=== PATIENT | male | born 1945 | race Caucasian/White ===

== ENCOUNTER 2024-08-28 12:48 | Inpatient (IN) | payer MEDICARE, OTHER ==
[~2024-08-28] VITALS: Ht 175.3 cm; Wt 107.7 kg
[2024-08-28] MEDS ORDERED: 0.9% SODIUM CHLORIDE 10 ML SYRINGE IVP PRN (13:00)
[2024-08-28 13:24] LABS: BASOPHILS % (AUTO) 0.2 % (0.0-2.0); EOSINOPHILS % (AUTO) 0.5 % (1.0-6.0); HEMATOCRIT 25.6 % (41-53); LYMPHOCYTES # (AUTO) 0.6 K/uL (1.0-4.8); LYMPHOCYTES % (AUTO) 7.2 % (22.0-44.0); MEAN CORPUSCULAR HEMOGLOBIN 29.1 pg (26.0-34.0); MEAN CORPUSCULAR HGB CONC 31.1 G/dL (31.0-37.0); MEAN CORPUSCULAR VOLUME 94 fL (80-100); MONOCYTES # (AUTO) 0.7 K/uL (0.1-1.0); MONOCYTES % (AUTO) 7.5 % (2.0-9.0); NEUTROPHILS # (AUTO) 7.4 K/uL (1.8-7.7); NEUTROPHILS % (AUTO) 84.6 % (40.0-70.0); PLATELET COUNT (AUTO) 150 K/uL (150-450); RED BLOOD CELL COUNT(AUTO) 2.74 MIL/uL (4.50-5.90); RED CELL DISTRIBUTION WIDTH 18.7 % (11.5-14.5); WHITE BLOOD COUNT (AUTO) 8.8 K/uL (4.5-11.0)
[2024-08-28 13:34] LABS: ANION GAP 4 mmol/L (8-16); CALCIUM, TOTAL 8.2 mg/dL (8.8-10.5); CARBON DIOXIDE 31 mmol/L (22-29); CHLORIDE 103 mmol/L (98-107); CREATININE 4.74 mg/dL (0.60-1.30); GLOMERULAR FILTR. RATE CALC 12 mL/min (>60); GLUCOSE,RANDOM 90 mg/dL (70-110); POTASSIUM 4.8 mmol/L (3.5-5.1); SODIUM SERUM 138 mmol/L (136-145); UREA NITROGEN, BLOOD 36 mg/dL (7-18)
[2024-08-28] MEDS ORDERED: NOREPINEPHRINE 8 MG/0.9 % NACL 250 ML IV ONE (13:35)
[2024-08-28 13:36] LABS: PROTHROMBIN TIME 11.9 SEC (9.4-11.6)
[2024-08-28] MEDS: SODIUM CHLORIDE 0.9% 2,000 ML IV ONE (13:37)
[2024-08-28] MEDS: CALCIUM GLUCONATE 100 MG/ML 10 ML IVP ONE (13:40)
[2024-08-28 13:43] LABS: ALANINE AMINOTRANSFERASE 10 U/L (12-78); ALBUMIN 2.2 g/dL (3.4-5.0); ALKALINE PHOSPHATASE 95 U/L (46-116); ASPARTATE AMINOTRANSFERASE 18 U/L (15-37); BILIRUBIN,TOTAL 0.5 mg/dL (0.1-1.0); LACTIC ACID 0.9 mmol/L (0.4-2.0); TOTAL PROTEIN, SERUM 6.5 g/dL (6.4-8.2); TROPONIN I-HIGH SENSITIVITY 39 ng/L (<76)
[2024-08-28] MEDS ORDERED: NOREPINEPHRINE 8 MG/0.9 % NACL 250 ML IV PRN (13:45)
[2024-08-28 13:52] VITALS: PULSE 85; RESP 22; O2SAT 92
[2024-08-28 13:54] LABS: ALLEN TEST, BLOOD GAS Positive; SITE, BLOOD GAS LFT RADIAL; SOURCE, BLOOD GAS ARTERIAL; TEMPERATURE, FAHRENHEIT, BG 97.8 FAHREN (96.0-98.6)
[2024-08-28 13:55] LABS: ABG A-A DIFF O2 566.4 mmHg (10-20.0); ABG BASE EXCESS -1.6 mmol/L (-2.0-3.0); ABG CARBOXYHEMOGLOBIN 2.1 % (0.5-1.5); ABG HCO3 22.8 mmol/L (21.0-28.0); ABG METHEMOGLOBIN 0.7 % (0.0-1.5); ABG OXYGEN CONTENT 11.2 mL/dL (15.0-23.0); ABG OXYGEN SATURATION 95.4 % (94.0-98.0); ABG OXYHEMOGLOBIN 92.7 % (94.0-98.0); ABG PCO2 61 mmHg (32.0-48.0); ABG PH 7.245 (7.350-7.450); ABG TOTAL HEMOGLOBIN 8.5 G/dL (13.5-17.5); PO2, ARTERIAL BG 87.1 mmHg (83.0-108.0)
[2024-08-28 13:56] LABS: B-TYPE NATRIURETIC PEPTIDE 1880 pg/mL (0-100)
[2024-08-28 13:56] LABS: O2 DEVICE,BLOOD GAS NON REBREATHER (ROOM AIR)
[2024-08-28] MEDS ORDERED: ETOMIDATE 2 MG/ML 10 ML VIAL ONE (14:12)
[2024-08-28] MEDS ORDERED: ROCURONIUM BROMIDE 10 MG/ML 5 ML VIAL ONE (14:12)
[2024-08-28 14:21] VITALS: PULSE 85; RESP 26; O2SAT 98
[2024-08-28] MEDS: ONDANSETRON HCL 4 MG/2 ML VIAL IVP ONE (14:48)
[2024-08-28] MEDS: CefTRIAXone 1 GM/DEXTROSE 50 ML IV ONE (15:07)
[2024-08-28] MEDS: FentaNYL CIT 1000MCG/0.9% NACL 100 ML IV PRN (15:24)
[2024-08-28] MEDS ORDERED: BISACODYL 10 MG RECTAL RECTAL SUPPOSITORY PR PRN (15:30)
[2024-08-28] MEDS ORDERED: DEXTROSE 50%-WATER 25 GM/50 ML SYRINGE IVP PRN (15:30)
[2024-08-28] MEDS ORDERED: ACETAMINOPHEN 325 MG TABLET PO PRN (15:30)
[2024-08-28 15:37] LABS: COVID AG,FIA SOURCE NASAL SWAB
[2024-08-28] MEDS ORDERED: VANCOMYCIN HCL 1 GM/D5% WATER 200 ML IV PRN (16:00)
[2024-08-28 16:11] VITALS: PULSE 54; RESP 26; O2SAT 90
[2024-08-28 16:55] LABS: INFLUENZA TYPE A NEGATIVE FOR TYPE A (NEGATIVE); INFLUENZA TYPE B NEGATIVE FOR TYPE B (NEGATIVE); SARS-COV2 (COVID) ANTIGEN,FIA Negative (Negative)
[2024-08-28] MEDS: PIPERACILLIN SODIUM/TAZOBACTAM 2.25 GM in DEXTROSE 5%-WATER 50 ML IV SCH (16:55)
[2024-08-28] MEDS: HEPARIN SODIUM,PORCINE 5,000 UNITS/ML VIAL SQ SCH (16:55)
[2024-08-28] MEDS: PROPOFOL 1000 MG/ISO-OSM 100 ML IV PRN (18:34)
[2024-08-28] MEDS: VANCOMYCIN 1.25 GM/WATER(PEG) 250 ML IV ONE (18:36)
[2024-08-28] MEDS ORDERED: MIDAZOLAM HCL 100 MG in SODIUM CHLORIDE 0.9% 180 ML IV PRN (19:15)
[2024-08-28] MEDS: NOREPINEPHRINE 8 MG/0.9 % NACL 250 ML IV PRN (19:17)
[2024-08-28 19:20] VITALS: PULSE 55; RESP 26; O2SAT 86
[2024-08-28 20:13] LABS: APPEARANCE,URINE TURBID (CLEAR); BILIRUBIN,URINE NEGATIVE (NEGATIVE); COLOR,URINE YELLOW (YELLOW); GLUCOSE, URINE (UA) NEGATIVE (NEGATIVE); KETONES,URINE NEGATIVE (NEGATIVE); LEUKOCYTE ESTERASE ,URINE LARGE (NEGATIVE); NITRATE,URINE NEGATIVE (NEGATIVE); OCCULT BLOOD,URINE LARGE (NEGATIVE); PH,URINE 5.5 (5.0-8.0); PROTEIN,URINE 100-200,SEE CONFIRM mg/dL (NEGATIVE); SPECIFIC GRAVITIY, URINE 1.021 (1.003-1.030); UROBILINOGEN,URINE <=1.0 mg/dL (<=1.0)
[2024-08-28] MEDS ORDERED: IOHEXOL 350 MG/ML 150 ML VIAL ONE (20:38)
[2024-08-28 20:47] LABS: BACTERIA,URINE Moderate /HPF (None Seen); WBC,URINE 51-100 /HPF (0-5); YEAST,URINE Few /HPF (None Seen)
[2024-08-28 20:48] LABS: SQUAMOUS EPITHELIAL CELL,UR Few /LPF (None Seen); SULFOSALICYLIC ACID,URINE 1+ (Negative)
[2024-08-28] MEDS: CHLORHEXIDINE GLUCONATE 2% TOWELETTE [2'S/6'S] TP SCH (21:28)
[2024-08-28 22:20] VITALS: PULSE 66; RESP 26; O2SAT 95
[2024-08-29] VITALS (22 sets, daily range): BP systolic 97–129; BP diastolic 44–62; PULSE 62–84; RESP 18–26; TEMP 95.4–98.8; O2SAT 92–100
[2024-08-29 01:51] LABS: SITE, BLOOD GAS LFT RADIAL; SOURCE, BLOOD GAS ARTERIAL
[2024-08-29 01:52] LABS: ABG PCO2 36 mmHg (32.0-48.0); ABG PH 7.412 (7.350-7.450); TEMPERATURE, FAHRENHEIT, BG 98.6 FAHREN (96.0-98.6)
[2024-08-29 01:55] LABS: ABG BASE EXCESS -2.3 mmol/L (-2.0-3.0); ABG HCO3 22.7 mmol/L (21.0-28.0); PO2, ARTERIAL BG 49.9 mmHg (83.0-108.0)
[2024-08-29 01:56] LABS: ABG A-A DIFF O2 633.9 mmHg (10-20.0); ABG CARBOXYHEMOGLOBIN 1.6 % (0.5-1.5); ABG METHEMOGLOBIN 0.6 % (0.0-1.5); ABG OXYGEN CONTENT 10.6 mL/dL (15.0-23.0); ABG OXYHEMOGLOBIN 83.2 % (94.0-98.0)
[2024-08-29 01:57] LABS: O2 DEVICE,BLOOD GAS VENTILATOR (ROOM AIR); VT, ABG 450 ml
[2024-08-29 01:59] LABS: SITE, BLOOD GAS LFT RADIAL; SOURCE, BLOOD GAS ARTERIAL; TEMPERATURE, FAHRENHEIT, BG 98.6 FAHREN (96.0-98.6)
[2024-08-29 02:00] LABS: ABG BASE EXCESS -1.9 mmol/L (-2.0-3.0); ABG HCO3 22.8 mmol/L (21.0-28.0); ABG PCO2 45 mmHg (32.0-48.0); ABG PH 7.341 (7.350-7.450); ABG TOTAL HEMOGLOBIN 9.3 G/dL (13.5-17.5); PO2, ARTERIAL BG 67.6 mmHg (83.0-108.0)
[2024-08-29 02:01] LABS: ABG A-A DIFF O2 613.5 mmHg (10-20.0); ABG CARBOXYHEMOGLOBIN 1.3 % (0.5-1.5); ABG METHEMOGLOBIN 0.6 % (0.0-1.5); ABG OXYGEN CONTENT 11.9 mL/dL (15.0-23.0); ABG OXYHEMOGLOBIN 90.3 % (94.0-98.0)
[2024-08-29 02:02] LABS: O2 DEVICE,BLOOD GAS VENTILATOR (ROOM AIR)
[2024-08-29 02:04] LABS: PEEP,BG 10 cm H2O; VT, ABG 450 ml
[2024-08-29 02:27] LABS: PEEP,BG 5 cm H2O
[2024-08-29 07:05] LABS: GLUCOMETER DEV NAME(LOC) ICU.S6; GLUCOSE,POINT OF CARE 89 MG/DL (70-110)
[2024-08-29] MEDS: PANTOPRAZOLE SODIUM 40 MG/VIAL IVP SCH (07:36)
[2024-08-29] MEDS: ETHYL ALCOHOL 62% ANTISEPTIC NASAL SANITIZER 0.6 ML AMPUL NASAL SCH (07:37)
[2024-08-29] MEDS ORDERED: SODIUM CHLORIDE 0.9% 250 ML IV ONE (07:42)
[2024-08-29] MEDS ORDERED: NOREPINEPHRINE 8 MG/0.9 % NACL 250 ML IV ONE (09:32)
[2024-08-29] MEDS: NOREPINEPHRINE 8 MG/0.9 % NACL 250 ML IV PRN (09:55)
[2024-08-29] MEDS: PROPOFOL 1000 MG/ISO-OSM 100 ML IV PRN (10:08)
[2024-08-29 10:42] LABS: BASOPHILS % (AUTO) 0.1 % (0.0-2.0); EOSINOPHILS % (AUTO) 2.7 % (1.0-6.0); HEMATOCRIT 29.5 % (41-53); HEMOGLOBIN 9.1 g/dL (13.5-17.5); LYMPHOCYTES # (AUTO) 0.2 K/uL (1.0-4.8); LYMPHOCYTES % (AUTO) 1.2 % (22.0-44.0); MEAN CORPUSCULAR HGB CONC 30.9 G/dL (31.0-37.0); MEAN CORPUSCULAR VOLUME 94 fL (80-100); MONOCYTES # (AUTO) 0.5 K/uL (0.1-1.0); MONOCYTES % (AUTO) 3.1 % (2.0-9.0); NEUTROPHILS # (AUTO) 15.2 K/uL (1.8-7.7); NEUTROPHILS % (AUTO) 92.9 % (40.0-70.0); PLATELET COUNT (AUTO) 166 K/uL (150-450); RED BLOOD CELL COUNT(AUTO) 3.14 MIL/uL (4.50-5.90); RED CELL DISTRIBUTION WIDTH 18.9 % (11.5-14.5); WHITE BLOOD COUNT (AUTO) 16.3 K/uL (4.5-11.0)
[2024-08-29 10:51] LABS: ALBUMIN 1.9 g/dL (3.4-5.0); BILIRUBIN,TOTAL 0.7 mg/dL (0.1-1.0); CALCIUM, TOTAL 7.7 mg/dL (8.8-10.5); CREATININE 3.96 mg/dL (0.60-1.30); MAGNESIUM 1.9 mg/dL (1.80-2.40); PHOSPHORUS 4.6 mg/dL (2.5-4.9); POTASSIUM 4.3 mmol/L (3.5-5.1); TOTAL PROTEIN, SERUM 6.2 g/dL (6.4-8.2)
[2024-08-29 10:51] LABS: ALLEN TEST, BLOOD GAS Positive; SITE, BLOOD GAS LFT RADIAL; SOURCE, BLOOD GAS ARTERIAL; TEMPERATURE, FAHRENHEIT, BG 95.9 FAHREN (96.0-98.6)
[2024-08-29 10:52] LABS: ABG A-A DIFF O2 395.3 mmHg (10-20.0); ABG BASE EXCESS -3.4 mmol/L (-2.0-3.0); ABG CARBOXYHEMOGLOBIN 1.4 % (0.5-1.5); ABG HCO3 21.5 mmol/L (21.0-28.0); ABG METHEMOGLOBIN 0.3 % (0.0-1.5); ABG OXYGEN CONTENT 17.6 mL/dL (15.0-23.0); ABG OXYGEN SATURATION 99.7 % (94.0-98.0); ABG PCO2 45 mmHg (32.0-48.0); ABG PH 7.317 (7.350-7.450); ABG TOTAL HEMOGLOBIN 12.4 G/dL (13.5-17.5); O2 DEVICE,BLOOD GAS VENTILATOR (ROOM AIR); PO2, ARTERIAL BG 203.3 mmHg (83.0-108.0); VT, ABG 450 ml
[2024-08-29 11:00] LABS: PEEP,BG 10 cm H2O; SPONTANEOUS VT, BG 478 ml
[2024-08-29 13:26] LABS: GLUCOMETER DEV NAME(LOC) ICU.S6; GLUCOSE,POINT OF CARE 98 MG/DL (70-110)
[2024-08-29] MEDS: HYDROCORTISONE SOD SUCC 100 MG/2 ML VIAL IVP SCH (14:37)
[2024-08-29] MEDS: FentaNYL CIT 1000MCG/0.9% NACL 100 ML IV PRN (22:36)
[2024-08-30] VITALS (22 sets, daily range): BP systolic 104–123; BP diastolic 40–74; PULSE 55–79; RESP 18–24; TEMP 97.2–98.6; O2SAT 92–100
[2024-08-30] MEDS ORDERED: SODIUM CHLORIDE 0.9% 250 ML IV ONE (05:40)
[2024-08-30 05:59] LABS: VANCOMYCIN,RANDOM 9.7 mcg/mL (25.0-50.0)
[2024-08-30 06:50] LABS: GLUCOMETER DEV NAME(LOC) ICU.S6; GLUCOSE,POINT OF CARE 116 MG/DL (70-110)
[2024-08-30 06:50] LABS: GLUCOMETER DEV NAME(LOC) ICU.S6; GLUCOSE,POINT OF CARE 140 MG/DL (70-110)
[2024-08-30 07:37] LABS: POTASSIUM 5.2 mmol/L (3.5-5.1)
[2024-08-30 07:38] LABS: CALCIUM, TOTAL 7.8 mg/dL (8.8-10.5); CREATININE 4.91 mg/dL (0.60-1.30)
[2024-08-30] MEDS: EPOETIN ALFA 10,000 UNITS/ML VIAL SQ SCH (08:20)
[2024-08-30 09:03] LABS: BASOPHILS % (AUTO) 0.2 % (0.0-2.0); EOSINOPHILS % (AUTO) 0 % (1.0-6.0); HEMATOCRIT 28.2 % (41-53); HEMOGLOBIN 8.8 g/dL (13.5-17.5); LYMPHOCYTES # (AUTO) 0.6 K/uL (1.0-4.8); MEAN CORPUSCULAR HEMOGLOBIN 29.6 pg (26.0-34.0); MEAN CORPUSCULAR HGB CONC 31.2 G/dL (31.0-37.0); MEAN CORPUSCULAR VOLUME 95 fL (80-100); MONOCYTES # (AUTO) 0.5 K/uL (0.1-1.0); MONOCYTES % (AUTO) 3.2 % (2.0-9.0); NEUTROPHILS # (AUTO) 14.6 K/uL (1.8-7.7); NEUTROPHILS % (AUTO) 92.6 % (40.0-70.0); PLATELET COUNT (AUTO) 167 K/uL (150-450); RED BLOOD CELL COUNT(AUTO) 2.98 MIL/uL (4.50-5.90); RED CELL DISTRIBUTION WIDTH 19.1 % (11.5-14.5); WHITE BLOOD COUNT (AUTO) 15.7 K/uL (4.5-11.0)
[2024-08-30] MEDS: VANCOMYCIN HCL 1 GM/D5% WATER 200 ML IV ONE (17:13)
[2024-08-30 21:36] LABS: GLUCOMETER DEV NAME(LOC) ICU.S6; GLUCOSE,POINT OF CARE 124 MG/DL (70-110)
[2024-08-30 21:36] LABS: GLUCOMETER DEV NAME(LOC) ICUN.5; GLUCOSE,POINT OF CARE 121 MG/DL (70-110)
[2024-08-31] VITALS (19 sets, daily range): BP systolic 96–122; BP diastolic 49–64; PULSE 52–97; RESP 18–27; TEMP 96.7–98; O2SAT 90–100
[2024-08-31 05:59] LABS: BASOPHILS % (AUTO) 0.2 % (0.0-2.0); EOSINOPHILS % (AUTO) 0 % (1.0-6.0); HEMATOCRIT 26.9 % (41-53); HEMOGLOBIN 8.6 g/dL (13.5-17.5); LYMPHOCYTES # (AUTO) 0.6 K/uL (1.0-4.8); LYMPHOCYTES % (AUTO) 6.9 % (22.0-44.0); MEAN CORPUSCULAR HEMOGLOBIN 30.2 pg (26.0-34.0); MEAN CORPUSCULAR VOLUME 94 fL (80-100); MONOCYTES # (AUTO) 0.6 K/uL (0.1-1.0); MONOCYTES % (AUTO) 7.4 % (2.0-9.0); NEUTROPHILS # (AUTO) 7.3 K/uL (1.8-7.7); PLATELET COUNT (AUTO) 147 K/uL (150-450); RED BLOOD CELL COUNT(AUTO) 2.85 MIL/uL (4.50-5.90); RED CELL DISTRIBUTION WIDTH 18.7 % (11.5-14.5); WHITE BLOOD COUNT (AUTO) 8.6 K/uL (4.5-11.0)
[2024-08-31 06:06] LABS: NEUTROPHILS % (AUTO) 85.5 % (40.0-70.0)
[2024-08-31 06:17] LABS: CALCIUM, TOTAL 7.2 mg/dL (8.8-10.5); CREATININE 3.69 mg/dL (0.60-1.30); MAGNESIUM 1.8 mg/dL (1.80-2.40); PHOSPHORUS 5.4 mg/dL (2.5-4.9); POTASSIUM 4.2 mmol/L (3.5-5.1)
[2024-08-31 06:36] LABS: GLUCOMETER DEV NAME(LOC) ICU.S6; GLUCOSE,POINT OF CARE 114 MG/DL (70-110)
[2024-08-31 08:01] LABS: GLUCOMETER DEV NAME(LOC) ICUN.5; GLUCOSE,POINT OF CARE 135 MG/DL (70-110)
[2024-08-31] MEDS: INSULIN LISPRO 100 UNITS/ML SQ PRN (12:07)
[2024-08-31 13:05] LABS: GLUCOMETER DEV NAME(LOC) ICUN.5; GLUCOSE,POINT OF CARE 141 MG/DL (70-110)
[2024-08-31] MEDS: IPRATROPIUM BROMIDE 0.5 MG/2.5 ML NEB SOLUTION NEB SCH (20:07)
[2024-08-31] MEDS: ALBUTEROL SULFATE 2.5 MG/0.5 ML NEB SOLUTION NEB SCH (20:07)
[2024-08-31] MEDS: ACETYLCYSTEINE 10% 100 MG/ML 4 ML NEB SOLUTION NEB SCH (20:09)
[2024-09-01] VITALS (24 sets, daily range): BP systolic 110–134; BP diastolic 56–81; PULSE 54–109; RESP 19–25; TEMP 96.9–98; O2SAT 90–99
[2024-09-01] MEDS ORDERED: SODIUM CHLORIDE 0.9% 250 ML IV ONE (00:43)
[2024-09-01 06:25] LABS: GLUCOMETER DEV NAME(LOC) ICUN.5; GLUCOSE,POINT OF CARE 125 MG/DL (70-110)
[2024-09-01 06:25] LABS: GLUCOMETER DEV NAME(LOC) ICUN.5; GLUCOSE,POINT OF CARE 163 MG/DL (70-110)
[2024-09-01 08:01] LABS: EOSINOPHILS % (AUTO) 0 % (1.0-6.0); HEMOGLOBIN 9.2 g/dL (13.5-17.5); LYMPHOCYTES # (AUTO) 0.3 K/uL (1.0-4.8); LYMPHOCYTES % (AUTO) 2.5 % (22.0-44.0); MEAN CORPUSCULAR HEMOGLOBIN 29.3 pg (26.0-34.0); MEAN CORPUSCULAR HGB CONC 31.7 G/dL (31.0-37.0); MEAN CORPUSCULAR VOLUME 93 fL (80-100); MONOCYTES # (AUTO) 0.8 K/uL (0.1-1.0); MONOCYTES % (AUTO) 6.5 % (2.0-9.0); NEUTROPHILS # (AUTO) 10.9 K/uL (1.8-7.7); PLATELET COUNT (AUTO) 186 K/uL (150-450); RED BLOOD CELL COUNT(AUTO) 3.13 MIL/uL (4.50-5.90); RED CELL DISTRIBUTION WIDTH 19.1 % (11.5-14.5)
[2024-09-01 08:09] LABS: CALCIUM, TOTAL 7.8 mg/dL (8.8-10.5); CREATININE 5.22 mg/dL (0.60-1.30); POTASSIUM 4.4 mmol/L (3.5-5.1)
[2024-09-01 08:20] LABS: ABG PH 7.332 (7.350-7.450); ALLEN TEST, BLOOD GAS Positive; SITE, BLOOD GAS LFT BRACHIAL; SOURCE, BLOOD GAS ARTERIAL; TEMPERATURE, FAHRENHEIT, BG 98.6 FAHREN (96.0-98.6)
[2024-09-01 08:21] LABS: ABG BASE EXCESS -6.4 mmol/L (-2.0-3.0); ABG CARBOXYHEMOGLOBIN 1.2 % (0.5-1.5); ABG HCO3 19.6 mmol/L (21.0-28.0); ABG METHEMOGLOBIN 0.3 % (0.0-1.5); ABG OXYHEMOGLOBIN 92.5 % (94.0-98.0); ABG PCO2 38 mmHg (32.0-48.0); PO2, ARTERIAL BG 78.5 mmHg (83.0-108.0)
[2024-09-01 08:22] LABS: ABG A-A DIFF O2 344.1 mmHg (10-20.0); ABG OXYGEN CONTENT 13.1 mL/dL (15.0-23.0); O2 DEVICE,BLOOD GAS VENTILATOR (ROOM AIR); VT, ABG 500 ml
[2024-09-01 08:23] LABS: PEEP,BG 5 cm H2O
[2024-09-01 08:30] LABS: GLUCOMETER DEV NAME(LOC) ICU.S6; GLUCOSE,POINT OF CARE 173 MG/DL (70-110)
[2024-09-01 18:00] LABS: GLUCOMETER DEV NAME(LOC) ICUN.5; GLUCOSE,POINT OF CARE 153 MG/DL (70-110)
[2024-09-01 20:30] LABS: GLUCOMETER DEV NAME(LOC) ICUN.5; GLUCOSE,POINT OF CARE 121 MG/DL (70-110)
[2024-09-02] VITALS (25 sets, daily range): BP systolic 102–123; BP diastolic 51–81; PULSE 53–90; RESP 18–27; TEMP 96.5–98.8; O2SAT 93–97
[2024-09-02 03:30] LABS: GLUCOMETER DEV NAME(LOC) ICU.S6; GLUCOSE,POINT OF CARE 115 MG/DL (70-110)
[2024-09-02 06:49] LABS: BASOPHILS % (AUTO) 0.1 % (0.0-2.0); EOSINOPHILS % (AUTO) 0.1 % (1.0-6.0); HEMATOCRIT 27.5 % (41-53); HEMOGLOBIN 8.8 g/dL (13.5-17.5); LYMPHOCYTES # (AUTO) 0.4 K/uL (1.0-4.8); LYMPHOCYTES % (AUTO) 6.4 % (22.0-44.0); MEAN CORPUSCULAR HEMOGLOBIN 29.8 pg (26.0-34.0); MEAN CORPUSCULAR VOLUME 93 fL (80-100); MONOCYTES # (AUTO) 0.5 K/uL (0.1-1.0); NEUTROPHILS % (AUTO) 84.4 % (40.0-70.0); PLATELET COUNT (AUTO) 135 K/uL (150-450); RED BLOOD CELL COUNT(AUTO) 2.96 MIL/uL (4.50-5.90); WHITE BLOOD COUNT (AUTO) 5.9 K/uL (4.5-11.0)
[2024-09-02 07:04] LABS: CALCIUM, TOTAL 8.1 mg/dL (8.8-10.5); CREATININE 5.78 mg/dL (0.60-1.30); MAGNESIUM 2.4 mg/dL (1.80-2.40); PHOSPHORUS 6.5 mg/dL (2.5-4.9); POTASSIUM 4.5 mmol/L (3.5-5.1)
[2024-09-02 07:05] LABS: GLUCOMETER DEV NAME(LOC) ICUN.5; GLUCOSE,POINT OF CARE 134 MG/DL (70-110)
[2024-09-02 07:34] LABS: VANCOMYCIN,RANDOM 14.7 mcg/mL (25.0-50.0)
[2024-09-02] MEDS: DEXMEDETOMIDINE 400 MCG/NS 100 ML IV PRN (08:20)
[2024-09-02] MEDS ORDERED: VANCOMYCIN 750 MG/WATER(PEG) 150 ML IV ONE (16:00)
[2024-09-02 17:25] LABS: GLUCOMETER DEV NAME(LOC) ICU.S6; GLUCOSE,POINT OF CARE 124 MG/DL (70-110)
== END 2024-09-02 15:30 | disposition short-term general hospital (02) | DRG 870 ==
LOC: EMS 12:52 → EDH 15:21 → ICU 08-29 01:30
PROVIDERS: ADMIT Internal Medicine; ATTEND Internal Medicine
PROC: 5A1955Z Respiratory Ventilation, Greater than 96 Consecutive Hours (ICD-10-PCS; principal; 2024-08-28)
PROC: 0BH17EZ Insertion of Endotracheal Airway into Trachea, Via Natural or Artificial Opening (ICD-10-PCS; 2024-08-28)
PROC: 5A1D70Z Performance of Urinary Filtration, Intermittent, Less than 6 Hours Per Day (ICD-10-PCS; 2024-08-29)
PROC: 5A1D70Z Performance of Urinary Filtration, Intermittent, Less than 6 Hours Per Day (ICD-10-PCS; 2024-08-30)
PROC: 5A1D70Z Performance of Urinary Filtration, Intermittent, Less than 6 Hours Per Day (ICD-10-PCS; 2024-08-31)
DX: A41.9 Sepsis, unspecified organism (principal); N18.6 End stage renal disease; J96.21 Acute and chronic respiratory failure with hypoxia; I50.23 Acute on chronic systolic (congestive) heart failure; R65.21 Severe sepsis with septic shock; J18.9 Pneumonia, unspecified organism; Z99.11 Dependence on respirator [ventilator] status; I13.2 Hypertensive heart and chronic kidney disease with heart failure and with stage 5 chronic kidney disease, or end stage renal disease; E44.0 Moderate protein-calorie malnutrition; N39.0 Urinary tract infection, site not specified; Z20.822 Contact with and (suspected) exposure to COVID-19; D63.8 Anemia in other chronic diseases classified elsewhere; Z99.2 Dependence on renal dialysis; I48.0 Paroxysmal atrial fibrillation; I25.10 Atherosclerotic heart disease of native coronary artery without angina pectoris; G47.33 Obstructive sleep apnea (adult) (pediatric); E11.22 Type 2 diabetes mellitus with diabetic chronic kidney disease; E11.51 Type 2 diabetes mellitus with diabetic peripheral angiopathy without gangrene; R31.9 Hematuria, unspecified; E66.01 Morbid (severe) obesity due to excess calories; R13.10 Dysphagia, unspecified; E11.40 Type 2 diabetes mellitus with diabetic neuropathy, unspecified; N40.0 Benign prostatic hyperplasia without lower urinary tract symptoms; Y95 Nosocomial condition; Z89.512 Acquired absence of left leg below knee; T88.4XXA Failed or difficult intubation, initial encounter; Y83.8 Other surgical procedures as the cause of abnormal reaction of the patient, or of later complication, without mention of misadventure at the time of the procedure; Z79.4 Long term (current) use of insulin; Y92.89 Other specified places as the place of occurrence of the external cause
CPT/HCPCS: 31500; 36600; 70491; 71045; 71275; 80048; 80053; 80076; 80202; 81001; 81002; 82805; 82962; 83605; 83735; 83880; 84100; 84145; 84484; 85025; 85610; 87040; 87070; 87081; 87086; 87340; 87804; 90935; 93005; 93306; 94002; 94003; 94640; 99285; 99291; J0610; J0696; J0885; J1644; J1720; J2250; J2405; J2470; J2543; J2704; J3010; J3370; J3490; J7050; J7060; 36415-L1; 36415-TC; J7613